=== PATIENT | male | born 1965 | race American Indian/Alaskan Native ===

== ENCOUNTER 2017-08-17 01:42 | Emergency (ER) | payer OTHER ==
[2017-08-17 01:47] VITALS: BP 133/81
--- NOTE | 2017-08-17 02:30 | XRay Report ---
FINAL REPORT EXAM: XR CHEST ROUTINE 2V HISTORY: cough, SOB TECHNIQUE: PA and lateral views of the chest were obtained. FINDINGS: The lungs are clear. There is no evidence of congestion. Heart size is normal. The thoracic aorta is mildly tortuous. Pleural fluid is not seen. The skeletal structures are well-maintained. IMPRESSION: No active chest disease.
[2017-08-17] MEDS ORDERED: DUONEB *Not for PRN Use IH ONE ×2 (05:50→05:51)
[2017-08-17] MEDS ORDERED: DELTASONE PO ONE (05:51)
--- NOTE | 2017-08-17 05:57 | Emergency Department Report ---
ED Shortness of Breath HPI - General Chief Complaint: Dyspnea/Respdistress Stated Complaint: SOB Time Seen by Provider: 08/17/17 05:39 Source: patient Mode of arrival: Ambulatory Limitations: No Limitations - History of Present Illness Initial Comments: 52-year-old male past medical history seasonal allergies presents with complaint of 2-3 weeks of persistent slightly productive cough sneezing and nasal congestion and intermittent wheezing. Patient states that he can usually gets bothersome allergy symptoms with exposure to pollen. Patient is awake alert and oriented 3 and denies any chest pain whatsoever denies any lower extremity swelling and denies any palpitations. States he has been taking Benadryl with minimal relief of his symptoms. MD Complaint: cough Onset/Timin -: week(s) - Related Data Previous Rx's Medication Instructions Recorded Last Taken Type Albuterol Sulfate [Ventolin Hfa] 1 puff IH Q4H PRN #1 hfa.aer.ad 08/17/17 Unknown Rx Fluticasone [Flonase] 1 spray NS QDAY PRN #1 bottle 08/17/17 Unknown Rx Loratadine [Claritin] 10 mg PO DAILY PRN #14 tablet 08/17/17 Unknown Rx Phenylephrine/Dm/Acetaminop/GG 10 ml PO Q6H PRN #1 liquid 08/17/17 Unknown Rx [Mucinex Tftn-Wjc-Plotnbntvd Lq] predniSONE [Deltasone] 40 mg PO QDAY #10 tab 08/17/17 Unknown Rx Allergies Allergy/AdvReac Type Severity Reaction Status Date / Time No Known Allergies Allergy Unverified 08/17/17 02:07 ED Review of Systems ROS: Stated complaint: SOB Other details as noted in HPI ED Past Medical Hx - Past Medical History Previous Medical History?: No - Surgical History Past Surgical History?: No - Social History Smoking Status: Never Smoker Substance Use Type: None - Medications Home Medications: Home Medications Medication Instructions Recorded Confirmed Last Taken Type Albuterol Sulfate [Ventolin Hfa] 1 puff IH Q4H PRN #1 hfa.aer.ad 08/17/17 Unknown Rx Fluticasone [Flonase] 1 spray NS QDAY PRN #1 bottle 08/17/17 Unknown Rx Loratadine [Claritin] 10 mg PO DAILY PRN #14 tablet 08/17/17 Unknown Rx Phenylephrine/Dm/Acetaminop/GG 10 ml PO Q6H PRN #1 liquid 08/17/17 Unknown Rx [Mucinex Cruf-Dwn-Wzygjxqans Lq] predniSONE [Deltasone] 40 mg PO QDAY #10 tab 08/17/17 Unknown Rx ED Physical Exam - General Limitations: No Limitations General appearance: alert, in no apparent distress - Head Head exam: Present: atraumatic, normocephalic - Eye Eye exam: Present: normal appearance, PERRL, EOMI - ENT ENT exam: Present: mucous membranes moist - Neck Neck exam: Present: normal inspection - Respiratory Respiratory exam: Present: normal lung sounds bilaterally, wheezes (slight wheezing). Absent: respiratory distress - Cardiovascular Cardiovascular Exam: Present: regular rate, normal rhythm. Absent: systolic murmur, diastolic murmur, rubs, gallop - GI/Abdominal GI/Abdominal exam: Present: soft, normal bowel sounds - Rectal Rectal exam: Present: deferred - Extremities Exam Extremities exam: Present: normal inspection - Back Exam Back exam: Present: normal inspection - Neurological Exam Neurological exam: Present: alert, oriented X3 - Psychiatric Psychiatric exam: Present: normal affect, normal mood - Skin Skin exam: Present: warm, dry, intact, normal color. Absent: rash ED Course Vital Signs 08/17/17 08/17/17 01:40 02:07 Temperature 98.8 F 98.8 F Pulse Rate 80 79 Respiratory 18 18 Rate Blood Pressure 133/81 133/81 O2 Sat by Pulse 96 96 Oximetry ED Medical Decision Making - Medical Decision Making A/P: Reactive airway disease, sinusitis, allergic rhinitis 1-Flonase, course of prednisone 2-Claritin, albuterol, course of Augmentin 3-vital signs stable for discharge 4-patient has no pleuritic chest pain palpitations or shortness of breath associated with chest pain. Symptoms are consistent with his previous episodes of allergic rhinitis Critical care attestation.: If time is entered above; I have spent that time in minutes in the direct care of this critically ill patient, excluding procedure time. ED Disposition Clinical Impression: Reactive airway disease Qualifiers: Asthma severity: mild Asthma persistence: intermittent Asthma complication type : uncomplicated Qualified Code(s): J45.20 - Mild intermittent asthma, uncomplicated Allergic rhinitis Qualifiers: Allergic rhinitis trigger: pollen Allergic rhinitis seasonality: seasonal Qualified Code(s): J30.1 - Allergic rhinitis due to pollen Disposition: DC-01 TO HOME OR SELFCARE Is pt being admited?: No Does the pt Need Aspirin: No Condition: Stable Instructions: Reactive Airways Disease (ED) Prescriptions: Albuterol Sulfate [Ventolin Hfa] 1 puff IH Q4H PRN #1 hfa.aer.ad PRN Reason: Wheezing Fluticasone [Flonase] 1 spray NS QDAY PRN #1 bottle PRN Reason: Congestion Loratadine [Claritin] 10 mg PO DAILY PRN #14 tablet PRN Reason: Congestion Phenylephrine/Dm/Acetaminop/GG [Mucinex Iych-Xgz-Joaujhkhmo Lq] 10 ml PO Q6H PRN #1 liquid PRN Reason: Cough predniSONE [Deltasone] 40 mg PO QDAY #10 tab Referrals: [facility] [Provider Group] - 3-5 Days Forms: Work/School Release Form(ED) Time of Disposition: 05:58
== END 2017-08-17 06:16 | disposition home or self-care (01) ==
LOC: ED 01:42
DX: J45.20 Mild intermittent asthma, uncomplicated (principal); J30.9 Allergic rhinitis, unspecified; R07.89 Other chest pain
CPT/HCPCS: 71046; 93005; 93010; 99283; J7512

== ENCOUNTER 2020-10-07 07:21 | Emergency (ER) | payer OTHER ==
[2020-10-07 07:36] VITALS: BP 136/86
[2020-10-07] MEDS ORDERED: IBUPROFEN 600 MG TAB PO ONE (07:52)
[2020-10-07] MEDS ORDERED: ACETAMINOPHEN 325 MG TAB PO ONE (07:52)
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
== END 2020-10-07 09:05 | disposition home or self-care (01) ==
LOC: ED 07:21
DX: S16.1XXA Strain of muscle, fascia and tendon at neck level, initial encounter (principal); S29.012A Strain of muscle and tendon of back wall of thorax, initial encounter; S29.011A Strain of muscle and tendon of front wall of thorax, initial encounter; M62.838 Other muscle spasm; V89.2XXA Person injured in unspecified motor-vehicle accident, traffic, initial encounter; Y93.89 Activity, other specified; Y92.488 Other paved roadways as the place of occurrence of the external cause; Y99.8 Other external cause status
CPT/HCPCS: 71046; 72125; 99284